=== PATIENT | male | born 1980 | race Caucasian/White ===

== ENCOUNTER 2023-12-08 13:54 | Emergency (ER) | payer OTHER ==
[~2023-12-08] VITALS: Ht 175.3 cm; Wt 117.9 kg
[2023-12-08 14:03] VITALS: BP 146/92; PULSE 121; RESP 20; TEMP 100.3; O2SAT 96
[2023-12-08] MEDS: KETOROLAC 30 MG/ML VIAL IVP ONE (14:48)
[2023-12-08] MEDS: DEXAMETHASONE 10 MG/ML VIAL IVP ONE (14:49)
[2023-12-08] MEDS: NACL 0.9% 1,000 ML IV SCH (14:49)
[2023-12-08 15:04] LABS: BASOPHILS # (AUTO) 0.1 K/uL (0.00-0.22); BASOPHILS % (AUTO) 0.4 % (0.0-2.0); EOSINOPHILS # (AUTO) 0.1 K/uL (0-0.4); EOSINOPHILS % (AUTO) 0.3 % (0.0-4.0); HEMATOCRIT 46.1 % (36-52); HEMOGLOBIN 16.1 g/dL (12.0-18.0); LYMPHOCYTES # (AUTO) 1.8 K/uL (2.0-11.5); LYMPHOCYTES % (AUTO) 8.6 % (20.5-51.1); MEAN CORPUSCULAR HEMOGLOBIN 29 pg (27-31); MEAN CORPUSCULAR HGB CONC 35 g/dL (33-37); MEAN CORPUSCULAR VOLUME 83.8 fL (80-94); MONOCYTES # (AUTO) 1.9 K/uL (0.8-1.0); NEUTROPHILS # (AUTO) 17.5 K/uL (1.8-7.7); NEUTROPHILS % (AUTO) 81.7 % (42.2-75.2); PLATELET COUNT (AUTO) 324 K/uL (140-450); RED CELL DISTRIBUTION WIDTH 13.3 % (11.6-13.7); WHITE BLOOD COUNT (AUTO) 21.4 K/uL (4.8-10.8)
[2023-12-08 15:14] LABS: ANION GAP 15.3 (8-16); CALCIUM 8.9 mg/dL (8.5-10.1); CARBON DIOXIDE 24.8 mmol/L (21-32); POTASSIUM 3.1 mmol/L (3.5-5.1)
[2023-12-08 15:24] LABS: ALANINE AMINOTRANSFERASE 77 U/L (12-78); ALBUMIN 3.4 g/dL (3.4-5.0); ALKALINE PHOSPHATASE 148 U/L (50-136); ASPARTATE AMINOTRANSFERASE 29 U/L (15-37); BILIRUBIN,DIRECT 0.4 mg/dL (0.0-0.3); CREATINE KINASE, TOTAL 68 U/L (39-308); TOTAL BILIRUBIN 1.8 mg/dL (0.0-1.0); TOTAL PROTEIN, SERUM 8.9 g/dL (6.4-8.2)
[2023-12-08 15:36] LABS: INR 1.14 (0.8-1.2); PARTIAL THROMBOPLASTIN TIME 33.9 secs (22-35.6); PROTHROMBIN TIME 11.9 secs (10.8-13.4)
[2023-12-08 15:56] VITALS: O2SAT 98
[2023-12-08 18:26] LABS: FLU A ANTIGEN negative (NEGATIVE); FLU B ANTIGEN negative (NEGATIVE)
[2023-12-08] MEDS ORDERED: AMOX1TAB8 PO (18:56)
[2023-12-08] MEDS: AMOXIL/CLAVULANATE 875/125 MG 1 TAB PO ONE (19:08)
[2023-12-08 19:14] VITALS: BP 134/76; PULSE 84; RESP 20; TEMP 100.3; O2SAT 98
== END 2023-12-08 19:14 | disposition home or self-care (01) ==
LOC: MED 13:54
DX: J03.90 Acute tonsillitis, unspecified (principal); Z20.822 Contact with and (suspected) exposure to COVID-19; Z79.2 Long term (current) use of antibiotics
CPT/HCPCS: 36415; 70491; 71045; 80048; 80076; 82550; 83605; 84484; 85025; 85610; 85730; 87040; 87081; 87426; 87804; 93005; 96361; 96374; 96375; 99285; J1100; J1885; J7030; Q9967

== ENCOUNTER 2024-08-27 11:10 | Emergency (ER) | payer SELFPAY ==
[~2024-08-27] VITALS: Ht 175.3 cm; Wt 120.8 kg
[~2024-08-27 11:10] MED LIST: AMOX1TAB8 PO
[2024-08-27 11:43] VITALS: BP 151/109; PULSE 84; RESP 18; TEMP 98.8; O2SAT 99
[2024-08-27] MEDS: LIDOCAINE 5% 1 EA PATCH TP ONE (12:45)
[2024-08-27] MEDS: KETOROLAC 30 MG/ML VIAL IM ONE (12:46)
[2024-08-27 13:15] LABS: BASOPHILS # (AUTO) 0.1 K/uL (0.00-0.22); BASOPHILS % (AUTO) 0.7 % (0.0-2.0); EOSINOPHILS # (AUTO) 0.2 K/uL (0-0.4); EOSINOPHILS % (AUTO) 2.1 % (0.0-4.0); HEMATOCRIT 46.4 % (36-52); LYMPHOCYTES # (AUTO) 2.6 K/uL (2.0-11.5); LYMPHOCYTES % (AUTO) 25.1 % (20.5-51.1); MEAN CORPUSCULAR HEMOGLOBIN 29 pg (27-31); MEAN CORPUSCULAR HGB CONC 35 g/dL (33-37); MEAN CORPUSCULAR VOLUME 84.5 fL (80-94); MONOCYTES # (AUTO) 1.1 K/uL (0.8-1.0); MONOCYTES % (AUTO) 10.7 % (1.7-9.3); NEUTROPHILS # (AUTO) 6.4 K/uL (1.8-7.7); NEUTROPHILS % (AUTO) 61.4 % (42.2-75.2); PLATELET COUNT (AUTO) 301 K/uL (140-450); RED CELL DISTRIBUTION WIDTH 13.2 % (11.6-13.7); WHITE BLOOD COUNT (AUTO) 10.4 K/uL (4.8-10.8)
[2024-08-27 13:29] LABS: ANION GAP 12.6 (8-16); CALCIUM 8.7 mg/dL (8.5-10.1); CARBON DIOXIDE 28.4 mmol/L (21-32)
[2024-08-27] MEDS ORDERED: ACET500T99 PO (14:16)
[2024-08-27] MEDS ORDERED: IBUP-2218 PO (14:16)
[2024-08-27] MEDS ORDERED: DICL20GE TP (14:16)
[2024-08-27 14:50] VITALS: BP 151/109; PULSE 84; RESP 18; TEMP 98.8; O2SAT 99
== END 2024-08-27 14:50 | disposition home or self-care (01) ==
LOC: MED 11:10
DX: R07.89 Other chest pain (principal); M54.9 Dorsalgia, unspecified; F12.90 Cannabis use, unspecified, uncomplicated; Z79.899 Other long term (current) drug therapy
CPT/HCPCS: 36415; 71045; 80048; 83880; 84484; 85025; 93005; 96372; 99285; J1885